=== PATIENT | male | born 1965 | race Caucasian/White ===

== ENCOUNTER 2018-05-26 07:32 | Observation (INO) | payer BC, OTHER, SELFPAY ==
[2018-05-26] MEDS ORDERED: NA CHLORIDE 0.9% 500 ML ONE (07:55)
--- NOTE | 2018-05-26 08:16 | RAD REPORT ---
EXAM DESCRIPTION: CT - CTHCSPWOC - 05/26/2018 8:00 am CLINICAL HISTORY: Trauma, head and neck injury. syncope COMPARISON: No comparisons TECHNIQUE: Axial 5 mm thick images of the head were obtained. Axial 2 mm thick images of the cervical spine were obtained with sagittal and coronal reconstruction images generated and reviewed. All CT scans are performed using dose optimization technique as appropriate and may include automated exposure control or mA/KV adjustment according to patient size. FINDINGS: CT HEAD WITHOUT CONTRAST: No acute hemorrhage, hydrocephalus or extra-axial collection is identified.8 mm low-density area is p resent in the white matter adjacent to the left frontal horn having the appearance of a remote infarc t.No areas of brain edema or midline shift. The paranasal sinuses and mastoids are clear.The calvarium is intact. CT CERVICAL SPINE WITHOUT CONTRAST: No fracture or subluxation.No prevertebral soft tissues swelling is identified. IMPRESSION: No acute intracranial or cervical spine findings.
--- NOTE | 2018-05-26 08:16 | RAD REPORT ---
EXAM DESCRIPTION: RAD - Chest Single View - 05/26/2018 8:00 am CLINICAL HISTORY: SYNCOPE Chest pain. COMPARISON: No comparisons FINDINGS: Portable technique limits examination quality. The lungs are grossly clear. The heart is normal in size. No displaced fractures. IMPRESSION: No acute intrathoracic process suspected.
[2018-05-26 08:20] LABS: ALT/SGPT 33 U/L (12-78); AST/SGOT 20 U/L (15-37); Albumin 3.8 g/dL (3.4-5.0); Alkaline Phosphatase 59 U/L (45-117); BUN Blood Urea Nitrogen 17 mg/dL (7-18); Bicarbonate 28 mmol/L (21-32); Bilirubin Direct 0.1 mg/dL (0-0.2); Bilirubin Total 0.4 mg/dL (0.2-1.0); Glucose Level 169 mg/dL (74-106); Magnesium 2.3 mg/dL (1.8-2.4); NT PRO-BNP 11 pg/mL (<125); Potassium 3.8 mmol/L (3.5-5.1); Protein, Total 7.2 g/dL (6.4-8.2); Sodium Level 137 mmol/L (136-145); Troponin (Emerg Dept Use Only) < 0.02 ng/mL (0.0-0.045)
[2018-05-26 08:21] LABS: Absolute Lymphocytes (CBC) 0.7 K/uL (0.7-4.9); Absolute Monocytes 0.4 K/uL (0.1-1.3); Absolute Neutrophil 4.2 K/uL (1.8-8.0); Basophils % 0.4 % (0-1.3); Eosinophils % 0.7 % (0-4.4); Hematocrit 45.9 % (39.6-49.0); Lymphocytes % 12.7 % (15.3-44.8); MPV 8.6 fL (7.6-11.3); Monocytes % 7.9 % (3.3-12.3); RBC Red Blood Cell Count 4.68 M/uL (4.33-5.43)
[2018-05-26 08:26] LABS: Protime INR 0.9
[2018-05-26] MEDS ORDERED: ASPIRIN 81 MG CHEWABLE TABLET ONE (08:34)
--- NOTE | 2018-05-26 08:53 | RAD REPORT ---
EXAM DESCRIPTION: CT - Chest For Pe Angio - 05/26/2018 8:44 am CLINICAL HISTORY: Chest pain. syncope COMPARISON: No comparisons TECHNIQUE: CT angiogram of the pulmonary arteries was performed with MIP. All CT scans are performed using dose optimization technique as appropriate and may include automated exposure control or mA/KV adjustment according to patient size. FINDINGS: No evidence of pulmonary thromboembolism. No acute aortic finding demonstrated. Mild ground-glass opacity in the lungs is seen which may indicate mild interstitial pulmonary edema. No focal consolidation typical of pneumonia present. No significant pericardial or pleural fluid. No concerning bony finding. IMPRESSION: No evidence of pulmonary thromboembolism.
[2018-05-26] MEDS ORDERED: ACETAMINOPHEN 500 MG TAB PO PRN (09:36)
--- NOTE | 2018-05-26 09:43 | ER ---
Nurse's Notes [facility] Name: Santos Greene Age: 52 yrs Sex: Male : 1965 Arrival Date: 05/26/2018 Time: 07:34 Bed 5 Private MD: Diagnosis: Syncope and collapse Presentation: 05/26 07:36 Presenting complaint: EMS states: pt reports feeling dizzy and lightheaded moments sg before waking up on the ground of his home, reports being incontinent of urine upon waking, denies pain or injury at this time, reports HTN and TIA. Transition of care: patient was not received from another setting of care. Onset of symptoms was May 26, 2018. Risk Assessment: Do you want to hurt yourself or someone else? Patient reports no desire to harm self or others. Initial Sepsis Screen: Does the patient meet any 2 criteria? No. Patient's initial sepsis screen is negative. Does the patient have a suspected source of infection? No. Patient's initial sepsis screen is negative. Care prior to arrival: None. 07:36 Method Of Arrival: EMS: [facility] sg 07:36 Acuity: CLYDE 2 sg Historical: - Allergies: 07:39 No Known Allergies; hb - Home Meds: 07:39 Lisinopril Oral [Active]; hb - PMHx: 07:39 Hypertension; TIA; 2011; hb - PSHx: 07:39 None; hb - Immunization history:: Adult Immunizations up to date. - Social history:: Smoking status: Patient/guardian denies using tobacco. Screenin:38 Abuse screen: Denies threats or abuse. Denies injuries from another. Nutritional hb screening: No deficits noted. Tuberculosis screening: No symptoms or risk factors identified. Fall Risk Total Fallon Fall Scale indicates Low Risk Score (25-44 pts). Fall prevention measures have been instituted. Side Rails Up X 2 Frequent Obs/Assesments occuring As available Patient and Family Educated on Fall Prevention Program and strategies. Assessment: 07:41 General: Appears in no apparent distress. comfortable, well groomed, well developed, sg well nourished, Behavior is calm, cooperative, appropriate for age. Pain: Complains of pain in back of head Pain does not radiate. Quality of pain is described as tender, vague. Neuro: Level of Consciousness is awake, alert, obeys commands, Oriented to person, place, time, situation, Document Control Supervisor are equal bilaterally Moves all extremities. Full function Gait is steady, Speech is normal, Facial symmetry appears normal, Pupils are PERRLA, Reports dizziness, since this AM a syncopal episode. Cardiovascular: Heart tones S1 S2 present Capillary refill is brisk in bilateral fingers Patient's skin is warm and dry. Chest pain is denied. Cardiovascular: Rhythm is sinus rhythm. Respiratory: Airway is patent Respiratory effort is even, unlabored, Respiratory pattern is regular, symmetrical, Breath sounds are clear bilaterally. GI: Abdomen is round non-distended, Reports normal bowel habits, tolerance of fluids, tolerance of food. : No signs and/or symptoms were reported regarding the genitourinary system. EENT: No signs and/or symptoms were reported regarding the EENT system. Derm: Skin is pink, warm \T\ dry. Musculoskeletal: No signs and/or symptoms reported regarding the musculoskeletal system. 07:53 Reassessment: xray at bedside at this time, pt to be transported to CT after xray, will sg continue to monitor. Vital Signs: 07:35 BP 165 / 100; Pulse 60; Resp 17; Temp 97.6; Pulse Ox 98% on R/A; Weight 124.74 kg (R); sg Height 5 ft. 10 in. (177.80 cm) (R); Pain 0/10; 07:54 BP 146 / 93 LA Supine (auto/lg); Pulse 63; Resp 25; Pulse Ox 97% on R/A; ag 07:54 BP 140 / 82 LA Sitting (auto/lg); Pulse 60; Resp 17; Pulse Ox 98% on R/A; ag 07:54 BP 152 / 90 LA Standing (auto/lg); Pulse 62; Resp 23; Pulse Ox 98% on R/A; ag 09:51 BP 148 / 92; Pulse 56 MON; Resp 17 S; Pulse Ox 99% on R/A; sg 07:35 Body Mass Index 39.46 (124.74 kg, 177.80 cm) sg Vitals: 09:51 Cardiac Rhythm Assessment Regular Sinus lisa. sg NIH Stroke Scale Scores: 07:36 NIHSS Score: 0 sg ED Course: 07:34 Patient arrived in ED. em 07:34 Johan Uribe PA is PHCP. cp 07:34 Jaun Kumar MD is Attending Physician. cp 07:34 Josesito Lee, RN is Primary Nurse. sg 07:35 Arm band placed on. sg 07:35 Initial lab(s) drawn, by me, sent to lab. Inserted saline lock: 20 gauge in right sg antecubital area, using aseptic technique. Blood collected. 07:40 Triage completed. sg 07:59 CT completed. Patient tolerated procedure well. Patient moved to CT via stretcher. eh Patient moved back from CT. 08:00 X-ray completed. Portable x-ray completed in exam room. Patient tolerated procedure kp1 well. 08:01 CT Head C Spine In Process Unspecified. EDMS 08:02 XRAY Chest (1 view) In Process Unspecified. EDMS 08:02 EKG done, by respiratory support technician. reviewed by Johan SAEZ. at1 08:42 CT completed. Patient tolerated procedure well. Patient moved to CT via stretcher. sj Patient moved back from CT. 08:44 CT Chest For PE Angio In Process Unspecified. EDMS 09:42 Jolene Frederick MD is Hospitalizing Provider. cp 11:26 Patient moved to MRI via wheelchair. lc 11:43 Patient moved back from MRI. lc Administered Medications: 07:52 Drug: NS 0.9% 500 ml Route: IV; Rate: bolus; Site: right antecubital; sg 08:25 Drug: Aspirin Chewable Tablet 324 mg Route: PO; sg Point of Care Testing: Blood Glucose: 07:38 Blood Glucose: 186 mg/dL; ag Ranges: Outcome: 09:43 Decision to Hospitalize by Provider. cp 12:01 Patient left the ED. [facility] NIH Stroke Scale - NIH Stroke Score Date: 05/26/2018 Time: 07:36 Total Score = 0 1a. Level of Consciousness (LOC) - 0(Alert) 1b. Level of Consciousness (LOC) (Year \T\ Age) - 0(Both) 1c. LOC Commands (Open \T\ Closes Eyes/Director Immunology) - 0(Both) 2. Best Gaze (Lateral Gaze Paresis) - 0(Normal) 3. Visual Field Loss - 0(No visual loss) 4. Facial Palsy - 0(Normal) 5a. Left Arm: Motor (10-second hold) - 0(No drift) 5b. Right Arm: Motor (10-second hold) - 0(No drift) 6a. Left Leg: Motor (5-second hold - always test supine) - 0(No drift) 6b. Right Leg: Motor (5-second hold - always test supine) - 0(No drift) 7. Limb Ataxia (finger/nose \T\ heel/torres - test with eyes open) - 0(Absent) 8. Sensory Loss (pinprick arms/legs/face) - 0(Normal) 9. Best Language: Aphasia (description/naming/reading) - 0(No aphasia) 10. Dysarthria (speech clarity - read or repeat words) - 0(Normal) 11. Extinction and Inattention (visual/tactile/auditory/spatial/personal) - 0(No abnormality) Initials: sg Signatures: Dispatcher [employer] EDJosesito Baca, RN RN Faisal Kruse PA PA jmm Compean, Wendi Espinal, Sergio White, Consuelo Pryor, Carlos Manuel, COCOA POWDER MIXER OPERATOR COCOA POWDER MIXER OPERATOR em Mckenzie Christianson, etcher electrolytic EKG Tat1 Monique Goode Corey, PA PA cp Baxter, Heather RN RN Tami Huang kp1 Corrections: (The following items were deleted from the chart) 07:40 07:36 Presenting complaint: EMS states: pt reports feeling dizzy and sg lightheaded moments before waking up on the ground of his home, reports being incontinent of urine upon waking, denies pain or injury at this time, denies any pertinent medical problems to his knowledge sg
--- NOTE | 2018-05-26 09:43 | EDPHYS ---
Physician Documentation [facility] Name: Santos Greene Age: 52 yrs Sex: Male : 1965 Arrival Date: 05/26/2018 Time: 07:34 Bed 5 Private MD: ED Physician Jaun Kumar HPI: 05/26 07:35 This 52 yrs old Male presents to ER via Unassigned with complaints of Syncope.cp 07:35 The patient has experienced syncope, collapsed, lost consciousness. Onset: The cp symptoms/episode began/occurred this morning. Associated injury: The patient did not suffer any apparent associated injury. 07:35 Duration: This was a single episode, that lasted an unknown period of time. cp 07:35 Context: occurred at home, occurred while the patient was standing, Just prior to the cp episode the patient experienced dizziness. Current symptoms: Currently, the patient is not experiencing any symptoms. Patient also reports episode of urinary incontinence when he awoke. Historical: - Allergies: 07:39 No Known Allergies; hb - Home Meds: 07:39 Lisinopril Oral [Active]; hb - PMHx: 07:39 Hypertension; TIA; 2011; hb - PSHx: 07:39 None; hb - Immunization history:: Adult Immunizations up to date. - Social history:: Smoking status: Patient/guardian denies using tobacco. ROS: 07:38 Constitutional: Negative for body aches, chills, fever, poor PO intake. cp 07:38 Eyes: Negative for injury, pain, redness, and discharge. cp 07:38 ENT: Negative for drainage from ear(s), ear pain, sore throat, difficulty swallowing, difficulty handling secretions. 07:38 Neck: Negative for pain with movement, stiffness. 07:38 Cardiovascular: Negative for chest pain, edema, palpitations. 07:38 Respiratory: Negative for cough, shortness of breath, wheezing. 07:38 Abdomen/GI: Negative for abdominal pain, nausea, vomiting, and diarrhea, black/tarry stool, rectal bleeding. 07:38 Skin: Negative for cellulitis, rash. 07:38 Neuro: Positive for syncope, Negative for altered mental status, headache, visual changes, weakness. 07:38 All other systems are negative. Exam: 07:45 Constitutional: The patient appears in no acute distress, alert, awake, cp non-diaphoretic, non-toxic, well developed, well nourished. 07:45 Head/Face: Normocephalic, atraumatic. cp 07:45 Eyes: Periorbital structures: appear normal, Pupils: equal, round, and reactive to light and accomodation, Extraocular movements: intact throughout, Conjunctiva: normal, no exudate, no injection, Sclera: no appreciated abnormality, Lids and lashes: appear normal, bilaterally. 07:45 ENT: External ear(s): are unremarkable, Ear canal(s): are normal, clear, TM's: bulging, is not appreciated, bilaterally, dullness, bilaterally, erythema, is not appreciated, bilaterally, Nose: is normal, Mouth: Lips: moist, Oral mucosa: pink and intact, moist, Posterior pharynx: is normal, airway is patent, no erythema, no exudate, Voice: is normal. 07:45 Neck: C-spine: vertebral tenderness, is not appreciated, crepitus, is not appreciated, ROM/movement: is normal, is supple, without pain, no range of motions limitations, no meningismus, no nuchal rigidity. 07:45 Chest/axilla: Inspection: normal, Palpation: is normal, no crepitus, no tenderness. 07:45 Cardiovascular: Rate: normal, Rhythm: regular, Heart sounds: murmur, not appreciated, Edema: is not appreciated, JVD: is not appreciated. 07:45 Respiratory: the patient does not display signs of respiratory distress, Respirations: normal, no use of accessory muscles, no retractions, no splinting, no tachypnea, labored breathing, is not present, Breath sounds: are clear throughout, no decreased breath sounds, no stridor, no wheezing. 07:45 Abdomen/GI: Inspection: abdomen appears normal, Palpation: abdomen is soft and non-tender, in all quadrants, Rectal exam: Stool: brown, guaiac positive. 07:45 Back: pain, is absent, ROM is normal. 07:45 Skin: cellulitis, is not appreciated, no rash present. 07:45 Neuro: Orientation: to person, place \T\ time. Mentation: is normal, Cerebellar function: is grossly normal, Motor: moves all fours, strength is normal, Sensation: is normal. 07:53 ECG was reviewed by the Attending Physician. cp Vital Signs: 07:35 BP 165 / 100; Pulse 60; Resp 17; Temp 97.6; Pulse Ox 98% on R/A; Weight 124.74 kg (R); sg Height 5 ft. 10 in. (177.80 cm) (R); Pain 0/10; 07:54 BP 146 / 93 LA Supine (auto/lg); Pulse 63; Resp 25; Pulse Ox 97% on R/A; ag 07:54 BP 140 / 82 LA Sitting (auto/lg); Pulse 60; Resp 17; Pulse Ox 98% on R/A; ag 07:54 BP 152 / 90 LA Standing (auto/lg); Pulse 62; Resp 23; Pulse Ox 98% on R/A; ag 09:51 BP 148 / 92; Pulse 56 MON; Resp 17 S; Pulse Ox 99% on R/A; sg 07:35 Body Mass Index 39.46 (124.74 kg, 177.80 cm) sg NIH Stroke Scale Scores: 07:36 NIHSS Score: 0 sg MDM: 07:36 Patient medically screened. cp 08:00 Differential Diagnosis: aortic aneurysm, cardiac arrhythmia, cerebrovascular accident, cp GI bleed, seizure, vasovagal episode, pulmonary embolism. 09:00 Data reviewed: vital signs, nurses notes, lab test result(s), EKG, radiologic studies, cp CT scan, plain films. 09:00 Test interpretation: by ED physician or midlevel provider: ECG, plain radiologic cp studies. Counseling: I had a detailed discussion with the patient and/or guardian regarding: the historical points, exam findings, and any diagnostic results supporting the discharge/admit diagnosis, the presence of at least one elevated blood pressure reading (>120/80) during this emergency department visit, lab results, radiology results, the need for further work-up and treatment in the hospital. 09:35 Physician consultation: Jolene Frederick MD was contacted at 09:35, regarding admission, cp to the telemetry unit. patient's condition. 05/26 07:36 Order name: Basic Metabolic Panel 05/26 07:36 Order name: CBC with Diff; Complete Time: 08:28 cp 05/26 08:29 Interpretation: Normal except: OTIS% 78.3; LYM% 12.7. cp 05/26 07:36 Order name: LFT's cp 05/26 07:36 Order name: Magnesium; Complete Time: 08:28 cp 05/26 07:36 Order name: NT PRO-BNP; Complete Time: 08:28 cp 05/26 07:36 Order name: PT-INR; Complete Time: 08:28 cp 05/26 07:36 Order name: Troponin (emerg Dept Use Only); Complete Time: 08:28 cp 05/26 07:36 Order name: D-Dimer; Complete Time: 08:28 cp 05/26 07:37 Order name: Basic Metabolic Panel; Complete Time: 08:21 EDMS 05/26 08:21 Interpretation: Normal except: GLUC 169; GFR 58. cp 05/26 07:37 Order name: Liver (Hepatic) Function; Complete Time: 08:28 EDMS 05/26 07:39 Order name: Glucose, Ancillary Testing; Complete Time: 08:20 EDMS 05/26 08:36 Order name: Urine Dipstick--Ancillary (enter results) eb 05/26 09:49 Order name: CBC with Automated Diff EDMS 05/26 09:49 Order name: CBC with Automated Diff EDMS 05/26 07:36 Order name: XRAY Chest (1 view); Complete Time: 08:20 cp 05/26 08:21 Interpretation: Report review. cp 05/26 07:36 Order name: EKG; Complete Time: 07:37 cp 05/26 07:37 Order name: CT Head C Spine; Complete Time: 08:20 cp 05/26 08:29 Order name: CT Chest For PE Angio; Complete Time: 08:54 cp 05/26 08:55 Interpretation: Report reviewed. cp 05/26 09:40 Order name: Echo with Doppler EDMS 05/26 09:41 Order name: Brain Wo Cont EDMS 05/26 09:41 Order name: Carotid Artery Bilateral EDMS 05/26 09:49 Order name: CBC with Automated Diff EDMS 05/26 09:49 Order name: CBC with Automated Diff EDMS 05/26 09:49 Order name: Comprehensive Metabolic Panel EDMS 05/26 09:49 Order name: Comprehensive Metabolic Panel EDMS 05/26 09:49 Order name: Comprehensive Metabolic Panel EDMS 05/26 09:49 Order name: Comprehensive Metabolic Panel EDMS 05/26 07:36 Order name: Orthostatics; Complete Time: 07:53 cp 12/20 07:36 Order name: Cardiac monitoring; Complete Time: 07:44 05/26 07:36 Order name: EKG - Nurse/Tech; Complete Time: 07:44 05/26 07:36 Order name: IV Saline Lock; Complete Time: 07:44 05/26 07:36 Order name: Labs collected and sent; Complete Time: 07:44 05/26 07:36 Order name: O2 Per Protocol; Complete Time: 07:45 05/26 07:36 Order name: O2 Sat Monitoring; Complete Time: 07:45 05/26 07:36 Order name: Urine Dipstick-Ancillary (obtain specimen); Complete Time: 08:26 05/26 09:40 Order name: Heart Healthy EDMS EC:53 Rate is 61 beats/min. Rhythm is regular. NH interval is normal. QRS interval is normal. cp QT interval is normal. No ST changes noted. Interpreted by me. Reviewed by me. Administered Medications: 07:52 Drug: NS 0.9% 500 ml Route: IV; Rate: bolus; Site: right antecubital; sg 08:25 Drug: Aspirin Chewable Tablet 324 mg Route: PO; sg Point of Care Testing: Blood Glucose: 07:38 Blood Glucose: 186 mg/dL; ag Ranges: Critical Glucose Levels:Adult <50 mg/dl or >400 mg/dl <40 mg/dl or >180 mg/dl Disposition: 05/26/18 09:43 Hospitalization ordered by Jolene Frederick for Observation. Preliminary diagnosis is Syncope and collapse. - Bed requested for Telemetry/MedSurg (observation). - Status is Observation. [facility] - Condition is Stable. - Problem is new. - Symptoms have improved. UTI on Admission? No NIH Stroke Scale - NIH Stroke Score Date: 05/26/2018 Time: 07:36 Total Score = 0 1a. Level of Consciousness (LOC) - 0(Alert) 1b. Level of Consciousness (LOC) (Year \T\ Age) - 0(Both) 1c. LOC Commands (Open \T\ Closes Eyes/Soup Person) - 0(Both) 2. Best Gaze (Lateral Gaze Paresis) - 0(Normal) 3. Visual Field Loss - 0(No visual loss) 4. Facial Palsy - 0(Normal) 5a. Left Arm: Motor (10-second hold) - 0(No drift) 5b. Right Arm: Motor (10-second hold) - 0(No drift) 6a. Left Leg: Motor (5-second hold - always test supine) - 0(No drift) 6b. Right Leg: Motor (5-second hold - always test supine) - 0(No drift) 7. Limb Ataxia (finger/nose \T\ heel/torres - test with eyes open) - 0(Absent) 8. Sensory Loss (pinprick arms/legs/face) - 0(Normal) 9. Best Language: Aphasia (description/naming/reading) - 0(No aphasia) 10. Dysarthria (speech clarity - read or repeat words) - 0(Normal) 11. Extinction and Inattention (visual/tactile/auditory/spatial/personal) - 0(No abnormality) Initials: Addendum: 06/06/2018 07:24 Co-signature as Attending Physician, Jaun Kumar MD I agree with the kdr assessment and plan of care. Signatures: Dispatcher [employer] [facility] Ilsa Olivo RN RN dw Gay, Steven, RN RN sg Rittger, Kevin, MD MD [facility] Faisal Andrew PA PA jmm Page, Corey, PA PA cp Baxter, Heather, RN RN Gretchen Mclaughlin Corrections: (The following items were deleted from the chart) 05/26 07:43 07:37 Head Brain Wo [id number].BRZ ordered. [facility] EDMS 09:45 09:43 Hospitalization Ordered by Jolene Frederick MD for Observation. Preliminary eb diagnosis is Syncope and collapse. Bed requested for Telemetry/MedSurg (observation). Status is Observation. Condition is Stable. Problem is new. Symptoms have improved. UTI on Admission? No. cp 11:21 09:45 05/26/2018 09:43 Hospitalization Ordered by Jolene Frederick MD for Observation. Preliminary diagnosis is Syncope and collapse. Bed requested for [facility] ER HOLD. Status is Observation. Condition is Stable. Problem is new. Symptoms have improved. UTI on Admission? No. eb 12:01 11:21 05/26/2018 09:43 Hospitalization Ordered by Jolene Frederick MD for [facility] Observation. Preliminary diagnosis is Syncope and collapse. Bed requested for Telemetry/MedSurg (observation). Status is Observation. Condition is Stable. Problem is new. Symptoms have improved. UTI on Admission? No. dw
[2018-05-26] MEDS ORDERED: INFLUENZA VACCINE (for 3y+) 0.5 ML DOSE IMVAC ONE (11:00)
--- NOTE | 2018-05-26 11:39 | RAD REPORT ---
EXAM DESCRIPTION: US - CP - 05/26/2018 11:04 am CLINICAL HISTORY: Syncope TIA/CVA COMPARISON: Head C Spine Mpr Wo Con dated 05/26/2018 TECHNIQUE: Real-time sonographic evaluation of both carotid systems was performed. Doppler interroga tion was performed with waveform tracing bilaterally. FINDINGS: Normal high resistance waveforms are noted in both external carotid arteries. The common c arotid arteries and internal carotid arteries show normal low resistance waveforms. No significant plaque formation is seen. Peak systolic and end diastolic velocity values and the ICA/ CCA ratios are in the non-hemodynamically significant range. Antegrade flow seen in both vertebral arteries. IMPRESSION: No significant atherosclerotic changes noted. No evidence of a hemodynamically significant stenosis.
--- NOTE | 2018-05-26 12:27 | RAD REPORT ---
EXAM DESCRIPTION: MRI - Brain Wo Cont - 05/26/2018 12:12 pm CLINICAL HISTORY: Syncope COMPARISON: Head CT May 26, 2018 TECHNIQUE: Axial, sagittal, and coronal magnetic images of the brain were obtained. Contrast was not requested FINDINGS: A 1 centimeter area of abnormal signal within the left frontal lobe adjacent to the fronta l horn of the left lateral ventricle may represent an old infarct. No additional abnormal signal with in the brain is noted. Diffusion-weighted/ADC mapping does not reveal evidence of acute infarction. The ventricles are normal caliber. An extra-axial fluid collection is not present The sinuses and mastoids are clear. IMPRESSION: No acute abnormality is displayed
--- NOTE | 2018-05-26 12:47 | ECHO ---
HEIGHT: 5 ft 10 in WEIGHT: 275 lb 0.074 oz DATE OF STUDY: 05/26/[address]: Jolene Frederick MD 2-DIMENSIONAL: YES M.MODE: YES DOPPLER: YES COLOR FLOW: YES TDS: PORTABLE: DEFINITY: BUBBLE STUDY: DIAGNOSIS: SYNCOPE CARDIAC HISTORY: CATHERIZATION: NO SURGERY: NO PROSTHETIC VALVE: NO PACEMAKER: NO MEASUREMENTS (cm) DIASTOLIC (NORMALS) SYSTOLIC (NORMALS) IVSd 1.2 (0.6-1.2) LA Diam 4.0 (1.9-4.0) LVEF 59% LVIDd 4.8 (3.5-5.7) LVIDs 3.3 (2.0-3.5) %FS 31% LVPWd 1.1 (0.6-1.2) Ao Diam 3.2 (2.0-3.7) 2 DIMENSIONAL ASSESSMENT: RIGHT ATRIUM: NORMAL LEFT ATRIUM: NORMAL RIGHT VENTRICLE: NORMAL LEFT VENTRICLE: NORMAL TRICUSPID VALVE: NORMAL MITRAL VALVE: NORMAL PULMONIC VALVE: NORMAL AORTIC VALVE: NORMAL PERICARDIAL EFFUSION: NONE AORTIC ROOT: NORMAL LEFT VENTRICULAR WALL MOTION: NORMAL DOPPLER/COLOR FLOW: NORMAL COMMENTS: NORMAL 2-DIMENSIONAL ECHOCARDIOGRAM WITH DOPPLER. NO WALL MOTION ABNORMALITY. NO EFFUSION. TECHNOLOGIST: PAUL CASTREJON
[2018-05-26 12:57] LABS: Urine Blood NEGATIVE (NEG); Urine Glucose NEGATIVE (NEG); Urine Protein 2+ (NEG)
--- NOTE | 2018-05-26 14:57 | P.SSS ---
Patient History Date of Service: 05/26/18 Primary Care Provider: Jocelyn Reason for admission: Syncope History of Present Illness: This is a 52-year-old male with significant past medical history of TIA and hypertension presented to the ED complaining of having a syncopal episode this morning. Patient stated that he woke up this morning and went to his kitchen to washes dishes after which he go behind the staff after drinking coffee started having coughing and had a syncopal episode where he passed out. Patient woke up was alert and oriented x3 however noticed that he was weak and thus he laid down in his bed. After laying down in bed patient had involuntary urination and thus he decided to come to the ER for further workup to history of TIA. No other complaints to offer at this time. Denies having any fever chills nausea vomiting or any other symptoms. The patient was admitted to the hospital for further workup of his syncopal episode due to a clear history of TIA and involuntary urination. Allergies No Known Allergies Allergy (Unverified 05/26/18 09:48) Home Medications: Levothyroxine Sodium [Synthroid] 1 tab PO DAILY 05/26/18 Lisinopril/Hydrochlorothiazide [Lisinopril-Hctz 20-12.5 mg Tab] 1 tab PO DAILY 05/26/18 - Past Medical/Surgical History Has patient received pneumonia vaccine in the past: No Diabetic: No -: Hypertension -: Transient Ischemic Attack Past Surgical History: Reviewed- Non-Contributory - Family History Family History: Reviewed- Non-Contributory - Social History Smoking Status: Never smoker Alcohol use: Yes CD- Drugs: No Caffeine use: No Place of Residence: Home Review of Systems 10-point ROS is otherwise unremarkable Physical Examination - Vital Signs Temperature: 97.6 F Blood Pressure: 148/92 Pulse: 56 Respirations: 17 - Physical Exam General: Alert, In no apparent distress HEENT: Atraumatic, PERRLA, Mucous membr. moist/pink, EOMI, Sclerae nonicteric Neck: Supple, 2+ carotid pulse no bruit, No LAD, Without JVD or thyroid abnormality Respiratory: Clear to auscultation bilaterally, Normal air movement Cardiovascular: Regular rate/rhythm, Normal S1 S2 Gastrointestinal: Normal bowel sounds, No tenderness Musculoskeletal: No tenderness Integumentary: No rashes Neurological: Normal gait, Normal speech, Normal strength at 5/5 x4 extr, Normal tone, Normal affect Lymphatics: No axilla or inguinal lymphadenopathy - Studies Laboratory Data (last 24 hrs) 05/26/18 07:35: PT 10.6, INR 0.90 05/26/18 07:35: WBC 5.3, Hgb 15.8, Hct 45.9, Plt Count 235 05/26/18 07:35: Sodium 137, Potassium 3.8, BUN 17, Creatinine 1.30, Glucose 169 H, Magnesium 2.3, Total Bilirubin 0.4, AST 20, ALT 33, Alkaline Phosphatase 59 - Diagnosis (Problem(s)) (1) Syncope Current Visit: Yes Status: Acute Plan: Syncope secondary to vasovagal. -echo negative at this time with no acute abnormality -carotid Doppler negative at this time with no abnormality -MRI of the brain negative for any acute stroke -patient can be discharged home safely as he is able to ambulate tolerated diet and no further syncopal episode is noted. Patient's syncope use most likely secondary to vasovagal secondary to him aspirating history in the morning Qualifiers: Syncope type: vasovagal syncope Qualified Code(s): R55 - Syncope and collapse (2) HTN (hypertension) Current Visit: Yes Status: Chronic Plan: Stable while here in the hospital Qualifiers: Hypertension type: essential hypertension Qualified Code(s): I10 - Essential (primary) hypertension (3) TIA (transient ischemic attack) Current Visit: Yes Status: Chronic Plan: H/o of TIA -MRI negative for acute stroke - Disposition Disposition: ROUTINE DISCHARGE Condition: GOOD Patient Discharge Instructions: Please f.u with PCP in 1 to 2 week post discharge. No New medication Diet: Regular Activity: Ad reba
--- NOTE | 2018-05-27 07:02 | EKG ---
Test Date: 2018-05-26 Test Time: 07:41:46 Vp Foundation: [facility] MEASUREMENT RESULTS: Intervals: Rate: 61 DE: 188 QRSD: 100 QT: 426 QTc: 428 [place]: P: 41 DE: 188 QRS: 10 T: 14 INTERPRETIVE STATEMENTS: Normal sinus rhythm Normal ECG No previous ECG available for comparison Electronically Signed On 05-27-18 06:53:32 MEDICAL OFFICE ADMINISTRATOR by Gil Wells
== END 2018-05-26 16:00 | disposition home or self-care (01) ==
LOC: ER 07:32 → ERHOLD 09:36 → 2ND 11:56
PROVIDERS: ADMIT Family Medicine; ATTEND Family Medicine
DX: R55 Syncope and collapse (principal); I10 Essential (primary) hypertension; Z86.73 Personal history of transient ischemic attack (TIA), and cerebral infarction without residual deficits
CPT/HCPCS: 36415; 70450; 70551; 71045; 71275; 72125; 80048; 80076; 81003; 82962; 83735; 83880; 84484; 85025; 85379; 85610; 93005; 93306; 93880; 99285; G0378; Q9967

== ENCOUNTER 2024-09-27 14:30 | Emergency (ER) | payer OTHER, SELFPAY ==
[2024-09-27 15:40] LABS: Absolute Eosinophils 0.1 K/uL (0-0.5); Absolute Lymphocytes (CBC) 0.3 K/uL (0.7-4.9); Absolute Monocytes 0.7 K/uL (0.1-1.3); Absolute Neutrophil 7.1 K/uL (1.8-8.0); Basophils % 0.1 % (0-1.3); Eosinophils % 1.8 % (0-4.4); Hematocrit 35.4 % (39.6-49.0); Hemoglobin 12.5 g/dL (13.6-17.9); Lymphocytes % 3.5 % (15.3-44.8); MCH 31.9 pg (27.0-35.0); MCHC 35.3 g/dL (32.0-36.0); MCV 90.3 fL (80-100); Neutrophils % 86.6 % (41.7-73.7); Nucleated Red Blood Cells % 0.1 % (0-0); Platelets 268 thou/uL (152-406); RBC Red Blood Cell Count 3.92 M/uL (4.33-5.43); Red Cell Distribution Width 13.5 % (12.1-15.2)
--- NOTE | 2024-09-27 16:05 | RAD REPORT ---
EXAM: Chest Single View HISTORY: 59 years Male FEVER COMPARISON: 05/26/2018 FINDINGS: LUNGS/PLEURA: The lungs are clear. No pleural effusions or pneumothorax. No pulmonary edema. CARDIAC/MEDIASTINUM: Magnified by portable technique, but probably within normal limits. UPPER ABDOMEN: No significant abnormality. BONES: No acute abnormality. LINES/TUBES/OTHER: N/A IMPRESSION: No evidence of acute cardiopulmonary disease.
[2024-09-27 16:10] LABS: Albumin 2.7 g/dL (3.4-5.0); Albumin/Globulin Ratio 0.6 (1.1-1.8); Anion Gap 8.4 mEq/L (5.0-15.0); Bilirubin Total 1.2 mg/dL (0.2-1.0); Globulin 4.5 g/dL (2.3-3.5); Potassium 3.4 mEq/L (3.5-5.1); Protein, Total 7.2 g/dL (6.4-8.2)
--- NOTE | 2024-09-27 16:49 | RAD REPORT ---
Abdomen Exam Limited: 09/27/2024 4:37 PM CLINICAL HISTORY: ABD PAIN STUDY: Limited right upper quadrant ultrasound of abdomen. COMPARISON: None. FINDINGS: Liver: Within normal limits. Bile ducts: No intrahepatic or extrahepatic biliary ductal dilatation. Common bile duct measures 4 mm. Gallbladder: Suspect mild sludge. No shadowing stones. No significant gallbladder wall thickening or pericholecystic fluid. No sonographic Cloud sign. IMPRESSION: Negative for cholelithiasis or acute cholecystitis. Sludge present.
[2024-09-27 17:02] LABS: Influenza A Ag Negative; Influenza B Ag Negative; SARS-CoV-2 Antigen Rapid Res Negative (Negative)
--- NOTE | 2024-09-27 17:30 | RAD REPORT ---
EXAMINATION: Abdomen Pelvis Wo Contrast CLINICAL INDICATION: Male, 59 years old.ABD PAIN TECHNIQUE: CT abdomen and pelvis was performed, without IV contrast, as per department protocol. Axia l, sagittal and coronal reconstructions were obtained. One or more of the following dose reduction techniques were used: Automated exposure control, adjustment of the mA and/or kV according to the pat ient size, and/or iterative reconstruction. Unless otherwise specified, incidental findings do not require dedicated imaging follow-up. [id number]. IV CONTRAST: Not administered. COMPARISON: None FINDINGS: The lack of intravenous contrast limits the sensitivity of this exam for evaluation of solid visceral organs, vascular structures, and retroperitoneum. LOWER CHEST: Trace bilateral pleural effusions and associated atelectasis.Mild cardiomegaly. Moderate coronary artery calcifications. UPPER GI: No significant abnormality. LIVER: Hepatic steatosis, but otherwise unremarkable. GALLBLADDER/BILE DUCTS: No biliary ductal dilatation.? PANCREAS: No mass, ductal dilation, or giovanna-pancreatic fluid. SPLEEN: Unremarkable. ADRENALS: No adrenal masses. KIDNEYS AND URETERS: No hydronephrosis.Limited evaluation for renal lesions in the absence of IV cont rast.3 mm stones present in the right and left kidney. ABDOMINAL AORTA AND OTHER VESSELS: Moderate atherosclerotic changes without aortic aneurysm. Question soft tissue around the abdominal aorta that could reflect developing retroperitoneal fibrosis. PERITONEUM: No abnormal free fluid. No free air. LYMPH NODES: Some prominent but nonpathologically enlarged retroperitoneal lymph nodes. Mild enlarged upper abdominal lymph nodes that may be related to underlying liver disease. ABDOMINAL WALL: Fat containing inguinal hernias. SMALL BOWEL/COLON: Small bowel has normal course and caliber. No colonic wall thickening or pericolon ic inflammatory changes.Normal appendix. URINARY BLADDER: Underdistended but grossly unremarkable. REPRODUCTIVE ORGANS: No pathologic process. MUSCULOSKELETAL: No acute or suspicious osseous abnormality. ADDITIONAL FINDINGS: None. IMPRESSION: No acute findings within the abdomen or pelvis. No appendicitis. Nonobstructive bilateral nephrolithi asis. Mild periaortic soft tissue which is suspicious for developing retroperitoneal fibrosis which can be from various etiologies. Additional clinical, biochemical, and/or immunologic workup may be necessary. Other incidental findings as noted above.
[2024-09-27 17:35] LABS: Blood Morphology Comment NOT SEEN (NOT SEEN); Platelet Estimate ADEQ; White Blood Cell Scan OK (OK)
[2024-09-27 18:03] LABS: Specific Gravity > 1.030 (1.005-1.030); Sqamous Epithelial <5 /HPF (None Seen); Urine Bacteria None Seen /HPF (<20); Urine Bilirubin 1+ (Negative); Urine Blood 2+ (Negative); Urine Clarity Extremely Turbid (Clear); Urine Color Yellow (Yellow); Urine Crystals Unidentified Few /HPF (None Seen); Urine Glucose 4+ (Negative); Urine Ketones NEGATIVE (Negative); Urine Micro Reflex YN NO BILL MICROSCOPIC; Urine Mucus Slight /HPF (None Seen); Urine Nitrite NEGATIVE (Negative); Urine Protein 2+ (Negative); Urine Urobilinogen 3+ (Normal); Urine WBC Clump Occasional /HPF (None Seen); Urine Yeast (Budding) Occasional /HPF (None Seen)
--- NOTE | 2024-09-27 18:08 | EDPHYS ---
Physician Documentation [facility] Name: Santos Greene Age: 59 yrs Sex: Male : 1965 Arrival Date: 09/27/2024 Time: 14:30 Bed 16 Private MD: ED Physician Dorota Frederick HPI: 09/27 15:17 This 59 yrs old Male presents to ER via Ambulatory with complaints of fever, malaise, sp3 sweats. 15:17 59-year-old male with history of hypertension, diabetes, hyperlipidemia [facility] chief complaint fever, malaise and sweats. 1 week ago patient had a "cyst" removed off of his back and subsequently had to go back to the same place for further incision and drainage. That procedure was done at [facility] urgent care. Patient denies any continued pain at the site of the procedure, bleeding, redness or rash, or any other signs or symptoms related to that at this time. Review of systems negative for headache, neck pain, chest pain, shortness of breath, cough, vomiting, diarrhea, or any other signs or symptoms on ROS at this time.. Historical: - Allergies: 15:00 No Known Allergies; iw - PMHx: 15:00 Hypertension; TIA; 2012; Diabetes mellitus; Hypothyroidism; Hypercholesterolemia; iw - PSHx: 15:00 None; iw - Immunization history:: Adult Immunizations up to date. - Infectious Disease History:: Denies. - Social history:: Smoking status: Patient denies any tobacco usage or history of. ROS: 15:19 Eyes: Negative for injury, pain, redness, and discharge, ENT: Negative for injury, sp3 pain, and discharge, Neck: Negative for injury, pain, and swelling, Cardiovascular: Negative for chest pain, palpitations, and edema, Respiratory: Negative for shortness of breath, cough, wheezing, and pleuritic chest pain, Abdomen/GI: Negative for abdominal pain, nausea, vomiting, diarrhea, and constipation, Back: Negative for injury and pain, MS/Extremity: Negative for injury and deformity, Neuro: Negative for headache, weakness, numbness, tingling, and seizure, Psych: Negative for depression, anxiety, suicide ideation, homicidal ideation, and hallucinations, Allergy/Immunology: Negative for hives, rash, and allergies, Endocrine: Negative for neck swelling, polydipsia, polyuria, polyphagia, and marked weight changes, 15:19 All other systems are negative, Exam: 15:19 Constitutional: This is a well developed, well nourished patient who is awake, alert, sp3 and in no acute distress. Head/Face: Normocephalic, atraumatic. Eyes: Pupils equal round and reactive to light, extra-ocular motions intact. Lids and lashes normal. Conjunctiva and sclera are non-icteric and not injected. Cornea within normal limits. Periorbital areas with no swelling, redness, or edema. ENT: Nares patent. No nasal discharge, no septal abnormalities noted. External auditory canals are clear. Oropharynx with no redness, swelling, or masses, exudates, or evidence of obstruction, uvula midline. Mucous membranes moist. Neck: Trachea midline, no thyromegaly or masses palpated, and no cervical lymphadenopathy. Supple, full range of motion without nuchal rigidity, or vertebral point tenderness. No Meningismus. Chest/axilla: Normal chest wall appearance and motion. Nontender with no deformity. No lesions are appreciated. Cardiovascular: Regular rate and rhythm with a normal S1 and S2. No gallops, murmurs, or rubs. Normal PMI, no JVD. No pulse deficits. Respiratory: Lungs have equal breath sounds bilaterally, clear to auscultation and percussion. No rales, rhonchi or wheezes noted. No increased work of breathing, no retractions or nasal flaring. Abdomen/GI: Soft, non-tender, with normal bowel sounds. No distension or tympany. No guarding or rebound. No evidence of tenderness throughout. Back: No spinal tenderness. No costovertebral tenderness. Full range of motion. MS/ Extremity: Pulses equal, no cyanosis. Neurovascular intact. Full, normal range of motion. Neuro: Awake and alert, GCS 15, oriented to person, place, time, and situation. Cranial nerves II-XII grossly intact. Motor strength 5/5 in all extremities. Sensory grossly intact. Cerebellar exam normal. Normal gait. Psych: Awake, alert, with orientation to person, place and time. Behavior, mood, and affect are within normal limits. 15:19 Skin: Dressing at cyst site at middle of his back removed and demonstrates no erythema, continued drainage or any other signs of infection.. Vital Signs: 14:56 BP 121 / 70; Pulse 80; Resp 19; Temp 98.8; Pulse Ox 97% on R/A; Weight 111.13 kg; iw Height 5 ft. 8 in. ; Pain 0/10; 15:30 BP 121 / 63; Pulse 74; Resp 18; Pulse Ox 97% on R/A; db 16:15 BP 117 / 71; Pulse 73; Resp 18; Pulse Ox 97% on R/A; db 16:45 BP 114 / 66; Pulse 72; Resp 16; Pulse Ox 97% on R/A; db 17:30 BP 120 / 73; Pulse 72; Resp 18; Pulse Ox 98% on R/A; db 18:00 BP 126 / 71; Pulse 73; Resp 16; Pulse Ox 98% on R/A; db 14:56 Body Mass Index 37.25 (111.13 kg, 172.72 cm) iw 14:56 Pain Scale: Adult iw MDM: 14:55 Medical Screening Exam initiated sp3 15:19 Data reviewed: vital signs, nurses notes, lab test result(s), radiologic studies. ED sp3 course: 59-year-old male with fever and malaise. Patient's vital signs currently normal. Patient is in no acute distress. I am not highly suspicious of cellulitis that is cyst removal site. Differential diagnosis includes viral illness, influenza, COVID-19, other upper respiratory infection, pneumonia, UTI, among others. Clinically I am not highly suspicious for sepsis, shock or any other critical process. Disposition pending workup and patient course with probable discharge home if workup negative with continued follow-up to her next level as needed.. 18:06 ED course: Patient with elevated LFTs however scans were normal. Patient has sludge. sp3 Urine also positive for UTI. We will discharge on antibiotic and have patient still follow-up with GI to look at his LFTs and further evaluate.. 09/27 15:03 Order name: CBC with Diff; Complete Time: 17:43 sp3 09/27 15:03 Order name: CMP; Complete Time: 16:14 sp3 09/27 15:03 Order name: Lipase; Complete Time: 16:14 sp3 09/27 15:14 Order name: COVID-19 Ag + Flu A+B Ag; Complete Time: 17:43 sp3 09/27 15:14 Order name: UAM; Complete Time: 18:04 sp3 09/27 17:36 Order name: CBC Smear Scan; Complete Time: 17:43 EDMS 09/27 15:14 Order name: CXR XRAY; Complete Time: 16:14 sp3 09/27 16:15 Order name: US Abdomen Limited; Complete Time: 17:43 sp3 09/27 16:15 Order name: CT Abd/Pelvis - Without Contrast; Complete Time: 17:43 sp3 09/27 15:03 Order name: IV Saline Lock; Complete Time: 15:26 sp3 09/27 15:03 Order name: Labs collected and sent; Complete Time: 15:26 sp3 Administered Medications: No medications were administered Disposition Summary: 09/27/24 18:07 Discharge Ordered Notes: Location: Home sp3 Condition: Stable sp3 Diagnosis - Urinary tract infection, elevated LFTs, biliary sludge sp3 Followup: sp3 - With: Private Physician - When: Upon discharge from the Emergency Department - Reason: Continuance of care Followup: sp3 - With: Umair Dillard MD - When: Upon discharge from the Emergency Department - Reason: Recheck today's complaints Discharge Instructions: - Discharge Summary Sheet sp3 - Urinary Tract Infection, Adult sp3 - Liver Function Tests sp3 Forms: - Medication Reconciliation Form sp3 - Antibiotic Education sp3 - Prescription Opioid Use sp3 - Patient Portal Instructions sp3 - Leadership Thank You Letter sp3 Prescriptions: - Bactrim DS 800-160 mg Oral Tablet - take 1 tablet ORAL route every 12 hours for 7 days; 14 tablet; Refills: 0, sp3 Product Selection Permitted Signatures: Dispatcher [employer] Kaylin Johnson RN RN iw Patel, Setul, MD MD sp3 Corrections: (The following items were deleted from the chart) 15:03 15:03 CBC+H.LAB.BRZ ordered. EDMS EDMS 15:03 15:03 COMPREHENSIVE METABOLIC PANEL+C.LAB.BRZ ordered. EDMS EDMS 15:03 15:03 LIPASE+C.LAB.BRZ ordered. EDMS EDMS 15:14 15:14 COVID-19 Ag + Flu A+B Ag+I.LAB.BRZ ordered. EDMS EDMS 15:14 15:14 Chest Single View+RAD.RAD.BRZ ordered. EDMS EDMS 15:14 15:14 Urinalysis W/Microscopic+U.LAB.BRZ ordered. EDMS EDMS 17:52 15:03 Urinalysis+U.LAB.BRZ ordered. EDMS EDMS
--- NOTE | 2024-09-27 18:08 | ER ---
[facility] Age: 59 yrs Sex: Male : 1965 Arrival Date: 09/27/2024 Time: 14:30 Bed 16 Private MD: Diagnosis: Urinary tract infection, elevated LFTs, biliary sludge Presentation: 09/27 14:56 Chief complaint: Patient states: had cyst removed from his tinajero at urgent care on iw Wednesday, Wednesday was running fever, Wednesday followed up and they cut it open more , still having fever , not eating, not feeling well, they gave him a shot of Rocephin and put him on bactrim , has been vomiting , +cough, no appetite. Coronavirus screen: Client presents with at least one sign or symptom that may indicate coronavirus-19. Ebola Screen: No symptoms or risks identified at this time. Initial Sepsis Screen: Does the patient meet any 2 criteria? No. Patient's initial sepsis screen is negative. Does the patient have a suspected source of infection?. Risk Assessment: Do you want to hurt yourself or someone else? Patient reports no desire to harm self or others. Onset of symptoms was September 25, 2024. 14:56 Method Of Arrival: Ambulatory iw 14:56 Acuity: CLYDE 3 iw Historical: - Allergies: 15:00 No Known Allergies; iw - PMHx: 15:00 Hypertension; TIA; 2012; Diabetes mellitus; Hypothyroidism; Hypercholesterolemia; iw - PSHx: 15:00 None; iw - Immunization history:: Adult Immunizations up to date. - Infectious Disease History:: Denies. - Social history:: Smoking status: Patient denies any tobacco usage or history of. Screenin:07 [facility] ED Fall Risk Assessment (Adult) History of falling in the last 3 months, db including since admission No falls in past 3 months (0 pts) Confusion or Disorientation No (0 pts) Intoxicated or Sedated Yes (3 pts) Impaired Gait No (0 pts) Mobility Assist Device Used No (0 pt) Altered Elimination No (0 pt) Score/Fall Risk Level 0 - 2 = Low Risk Oriented to surroundings, Maintained a safe environment. Abuse screen: Denies threats or abuse. Denies injuries from another. Nutritional screening: No deficits noted. Tuberculosis screening: No symptoms or risk factors identified. Assessment: 16:00 Reassessment: Patient appears in no apparent distress at this time. Patient and/or db family updated on plan of care and expected duration. Pain level reassessed. Patient is alert, oriented x 3, equal unlabored respirations, skin warm/dry/pink. General: Appears in no apparent distress. comfortable, Behavior is calm, cooperative. Pain: Complains of pain in abdomen. Neuro: Level of Consciousness is awake, alert, obeys commands, Oriented to person, place, time, situation. Respiratory: Airway is patent Respiratory effort is even, unlabored, Respiratory pattern is regular, symmetrical. GI: Bowel sounds present X 4 quads. Abd is soft. 17:00 Reassessment: Patient appears in no apparent distress at this time. Patient and/or db family updated on plan of care and expected duration. Pain level reassessed. Patient is alert, oriented x 3, equal unlabored respirations, skin warm/dry/pink. 18:24 Reassessment: Patient appears in no apparent distress at this time. Patient and/or db family updated on plan of care and expected duration. Pain level reassessed. Patient is alert, oriented x 3, equal unlabored respirations, skin warm/dry/pink. Patient states feeling better. Patient states symptoms have improved. Vital Signs: 14:56 BP 121 / 70; Pulse 80; Resp 19; Temp 98.8; Pulse Ox 97% on R/A; Weight 111.13 kg; iw Height 5 ft. 8 in. ; Pain 0/10; 15:30 BP 121 / 63; Pulse 74; Resp 18; Pulse Ox 97% on R/A; db 16:15 BP 117 / 71; Pulse 73; Resp 18; Pulse Ox 97% on R/A; db 16:45 BP 114 / 66; Pulse 72; Resp 16; Pulse Ox 97% on R/A; db 17:30 BP 120 / 73; Pulse 72; Resp 18; Pulse Ox 98% on R/A; db 18:00 BP 126 / 71; Pulse 73; Resp 16; Pulse Ox 98% on R/A; db 14:56 Body Mass Index 37.25 (111.13 kg, 172.72 cm) iw 14:56 Pain Scale: Adult iw ED Course: 14:33 Patient arrived in ED. al6 14:35 Dorota Frederick MD is Attending Physician. sp3 15:00 Triage completed. iw 15:01 Arm band placed on. iw 15:26 Initial lab(s) drawn, by me, sent to lab. Inserted saline lock: 20 gauge in right kb4 antecubital area, using aseptic technique. Blood collected. Flushed with 10 mL NS. 15:55 CXR XRAY In Process Unspecified. EDMS 16:39 US Abdomen Limited In Process Unspecified. EDMS 17:06 Sneha Price, RN is Primary Nurse. db 17:07 Patient has correct armband on for positive identification. Placed in gown. Bed in low db position. Side rails up X 1. Client placed on continuous cardiac and pulse oximetry monitoring. NIBP monitoring applied. lending advisor on. Pulse ox on. NIBP on. Warm blanket given. Pillow given. 17:08 CT Abd/Pelvis - Without Contrast In Process Unspecified. EDMS 18:11 Umair Dillard MD is Referral Physician. sp3 18:26 Provided Education on: DISCHARGE AND FOLLOWUP. db 18:26 No provider procedures requiring assistance completed. IV discontinued, intact, db bleeding controlled, No redness/swelling at site. Administered Medications: No medications were administered Medication: 18:26 VIS not applicable for this client. db Outcome: 18:07 Discharge ordered by . sp3 18:26 Discharged to home ambulatory, with family, db 18:26 Condition: stable 18:26 Discharge instructions given to patient, family, Instructed on discharge instructions, follow up and referral plans. Prescriptions given X 1, 18:26 Patient left the ED. db Signatures: Dispatcher [employer] EDNJ Kaylin Bal RN RN iw Dorota Frederick MD MD sp3 Sneha Price RN RN db Kirsten Tariq al6 Kim Mitchell kb4 Corrections: (The following items were deleted from the chart) 15:00 14:56 Chief complaint: Patient states: had cyst removed from his tinajero at urgent care on iw Wednesday, Wednesday was running fever, Wednesday followed up and they cut it open more , still having fever , not eating, not feeling well, they gave him a shot of Rocephin and put him on bactrim , has been vomiting iw 15:01 14:56 BP 121 / 70; Pulse 80bpm; Resp 19bpm; Pulse Ox 97% RA; Temp 98.8F; Pain 0/10, iw Adult; iw
[2024-09-27 19:09] VITALS: TEMP 98.8
[2024-09-27 19:14] VITALS: O2SAT 98
[2024-09-27 19:15] VITALS: BP 126/71
== END 2024-09-27 18:26 | disposition home or self-care (01) ==
LOC: ER 14:30
DX: N39.0 Urinary tract infection, site not specified (principal); R79.89 Other specified abnormal findings of blood chemistry; K83.8 Other specified diseases of biliary tract
CPT/HCPCS: 36415; 71045; 74176; 76705; 80053; 81001; 83690; 85025; 87428